=== PATIENT | male | born 1980 | race Caucasian/White ===

== ENCOUNTER 2020-11-02 03:08 | Outpatient (CLI) | payer OTHER, SELFPAY ==
[2020-11-02 11:38] LABS: Source Nasal/Nares
[2020-11-02 15:14] LABS: COVID-19 PCR Negative (Negative)
== END 2020-11-02 03:09 | disposition home or self-care (01) ==
PROVIDERS: Visit Provider Ophthalmology
DX: Z20.822 Contact with and (suspected) exposure to COVID-19 (principal); Z01.818 Encounter for other preprocedural examination
CPT/HCPCS: 87635